=== PATIENT | female | born 1965 | race Caucasian/White ===

== ENCOUNTER 2018-04-05 14:00 | Outpatient (CLI) | payer BC | END 2018-04-05 14:01 | disposition home or self-care (01) | LOC: BICMAMMO 14:00 | PROVIDERS: ATTEND Nurse Practitioner Family | DX: Z12.31 Encounter for screening mammogram for malignant neoplasm of breast (principal); N63.10 Unspecified lump in the right breast, unspecified quadrant; N63.20 Unspecified lump in the left breast, unspecified quadrant | CPT/HCPCS: 77063; 77067 ==

== ENCOUNTER 2019-02-05 08:49 | Day surgery (SDC) | payer OTHER ==
[2019-02-02 14:37] VITALS: BMI 48.6
--- NOTE | 2019-02-04 15:31 | HP ---
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 She has an MRI from [facility] that reveals a lateral disk herniation with inferior migration to the left at L4 that would match the symptoms well. She has already attempted chiropractics as well as PT, but both of these seem to have made her pain significantly worse. She takes [place] and muscle relaxers around the clock and is still content with significant pain. PAST MEDICAL HISTORY: Significant for diabetes, hypertension, arthritis. PAST SURGICAL HISTORY: Hysterectomy, left total knee replacement, right total knee replacement, and tonsillectomy. CURRENT MEDICATIONS: 1. Metformin. 2. Lisinopril/hydrochlorothiazide. 3. Glyburide. 4. Etodolac. 5. Victoza. 6. Tramadol. 7. Tizanidine. 8. [place]. ALLERGIES: PENICILLIN, BACTRIM. PHYSICAL EXAMINATION: GENERAL: The patient is alert and oriented x3. Her gait is significantly altered secondary to weakness in her foot on the left. She is unable to heel walk on the left side. She can toe walk bilaterally reasonably well. She dorsiflexes with great strength in the right lower extremity but on the left lower extremity, she can only dorsiflex to about neutral position and has give-way weakness from there when resisted. Reflexes are equal and present bilaterally at the patella and Achilles. 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 PLAN: Dr. Merino met with the patient, reviewed imaging, advocated for left L4 diskectomy. He explained to the patient the risks, benefits, and alternatives to the procedure. The patient expressed understanding and elected to move forward with surgery as discussed. I do believe the patient is mentally competent capable of making medical decisions for herself and we will move forward with surgery as planned. Job ID: [id number]
[2019-02-05] MEDS ORDERED: Bupivacaine HCl 0.5%/Epinephrine 1:200,000/PF 30 ml Vial ONE (09:17)
[2019-02-05] MEDS ORDERED: Thrombin 5000 UNITS/5 ML VIAL ONE (09:17)
[2019-02-05] MEDS ORDERED: Fentanyl 100 MCG/2 ML VIAL ONE ×4 (09:36→11:59)
[2019-02-05] MEDS ORDERED: Clindamycin/D5W 900 mg/50 ml Premix Bag ONE (09:37)
[2019-02-05] MEDS ORDERED: Midazolam HCl 2 mg/2 ml Vial ONE (09:37)
[2019-02-05] MEDS ORDERED: Levofloxacin 500 mg/D5W 100 ml Premix Bag ONE (09:37)
[2019-02-05] MEDS ORDERED: Ondansetron PF 4 MG/2 ML Vial ONE (09:54)
[2019-02-05] MEDS ORDERED: Lidocaine 1% PF 5 ML VIAL ONE (09:54)
[2019-02-05] MEDS ORDERED: diphenhydrAMINE 50 MG/ML VIAL ONE (09:54)
[2019-02-05] MEDS ORDERED: PHENYLEPHRINE-NS 100 MCG/ML 10 ML SYRINGE ONE (09:54)
[2019-02-05] MEDS ORDERED: Glycopyrrolate 0.2 MG/ML 5 ML SYRINGE ONE (09:54)
[2019-02-05] MEDS ORDERED: Metoclopramide HCl 10 MG/2 ML VIAL ONE (09:54)
[2019-02-05] MEDS ORDERED: PROPOFOL 200 MG/20 ML VIAL ONE (09:54)
[2019-02-05] MEDS ORDERED: Rocuronium Bromide 10 MG/ML (10ML VIAL) ONE (09:54)
[2019-02-05] MEDS ORDERED: SUGAMMADEX SODIUM 500 MG/5 ML VIAL ONE (11:16)
[2019-02-05] MEDS ORDERED: HYDROcodone/Acetaminophen 5/325 mg Tablet ONE (13:17)
--- NOTE | 2019-02-06 09:33 | EKG ---
Test Reason : PREOP Blood Pressure : / mmHG Vent. Rate : 085 BPM Atrial Rate : 085 BPM P-R Int : 160 ms QRS Dur : 078 ms QT Int : 360 ms P-R-T Axes : 067 032 066 degrees QTc Int : 428 ms Normal sinus rhythm Nonspecific T wave abnormality Abnormal ECG When compared with ECG of 19-JAN-2011 12:59, Nonspecific T wave abnormality now evident in Lateral leads Confirmed by DR. Shelly MORLEY ([id number]) on 02/06/2019 9:33:07 AM Referred By: DIANE Confirmed By:DR. Shelly MORLEY
--- NOTE | 2019-02-06 11:38 | OP ---
DATE OF PROCEDURE: 02/05/2019 ADAPTIVE PHYSICAL EDUCATION SPECIALIST: Shankar Sheikh PA-C INDICATION: Pain. DIAGNOSIS: L5 radiculopathy with L4 disk herniation. PROCEDURE: Left L4 diskectomy. ANESTHESIA: General. DESCRIPTION OF PROCEDURE: The patient was brought into the operating room and placed under general anesthesia. She was flipped from the supine to prone position on the operating room table. A linear incision was planned over L4. After prepping and draping and after an appropriate preoperative pause, the incision was created. The soft tissues were swept left of midline. A self-retaining retractor was placed in the wound for optimal exposure. After confirming the appropriate level with C-arm fluoroscopy, high-speed cutting drill bit as well as 1, 2, and 3 mm Kerrisons were used to perform a laminectomy along the inferior aspect of L4 and the superior aspect of L5. The protuberant disk mass was identified at L4 and carefully removed until the descending L5 nerve root was decompressed. The wound was then irrigated. Hemostasis was maintained throughout. The wound was then closed in anatomic layers and a pressure dressing was applied. There were no known procedural complications. Job ID: [id number]
== END 2019-02-05 14:20 | disposition home or self-care (01) ==
LOC: SDC 08:49
PROVIDERS: ATTEND Neurological Surgery
PROC: 0SB20ZZ Excision of Lumbar Vertebral Disc, Open Approach (ICD-10-PCS; principal; 2019-02-05)
DX: M51.16 Intervertebral disc disorders with radiculopathy, lumbar region (principal); M21.372 Foot drop, left foot; I10 Essential (primary) hypertension; E11.9 Type 2 diabetes mellitus without complications; M19.90 Unspecified osteoarthritis, unspecified site; Z79.52 Long term (current) use of systemic steroids; Z79.84 Long term (current) use of oral hypoglycemic drugs; Z79.899 Other long term (current) drug therapy; Z88.0 Allergy status to penicillin; Z88.2 Allergy status to sulfonamides; Z96.653 Presence of artificial knee joint, bilateral
CPT/HCPCS: 76000; 93005; 93010; J0670; J1200; J1956; J2001; J2250; J2405; J2704; J2765; J3010; J3490

== ENCOUNTER 2024-08-24 11:31 | Emergency (ER) | payer BC, OTHER ==
[2024-08-24 12:37] LABS: #Basophils 0.08 10x3/uL (0.0-0.2); %Basophils 0.5 % (0.0-1.0); %Eosinophils 2.9 % (0.0-10.0); %Lymphocytes 23.5 % (21.0-51.0); %Monocytes 5.5 % (0.0-10.0); %Neutrophils 67.2 % (42.0-75.0); Hematocrit 43.2 % (36.0-47.0); Hemoglobin 14.7 g/dL (12.0-16.0); Mean Corpuscular Hemoglobin 29.8 pg (27.0-31.0); Mean Corpuscular Volume 87.4 fL (78.0-98.0); Mean Platelet Volume 9.7 fL (7.4-10.4); Platelet Count 375 10x3/uL (130-400); RBC Distribution Width 13.9 % (11.5-14.5); Red Blood Cell (RBC) Count 4.94 mill/uL (4.20-5.40)
[2024-08-24 13:00] LABS: ALT (SGPT) 28 U/L (8-55); AST (SGOT) 18 U/L (5-34); Albumin 3.5 g/dL (3.5-5.0); Alkaline Phosphatase 47 U/L (40-110); Anion Gap 14 mmol/L (10-20); BUN (Urea Nitrogen) 14 mg/dL (9.8-20.1); Bilirubin, Total 0.3 mg/dL (0.2-1.2); Calc. Creatinine Clearance 0 mL/min (70-130); Calcium 9.5 mg/dL (7.8-10.44); Carbon Dioxide 24 mmol/L (22-29); Chloride 99 mmol/L (98-107); Estimated GFR 96; Globulin 3.3 g/dL (2.4-3.5); Glucose 308 mg/dL (70-105); Magnesium 1.6 mg/dL (1.6-2.6); Potassium 3.5 mmol/L (3.5-5.1); Protein, Total 6.8 g/dL (6.0-8.3); Sodium 133 mmol/L (136-145)
[2024-08-24 13:08] LABS: Troponin I 0.029 ng/mL (< 0.028)
[2024-08-24] MEDS ORDERED: Amiodarone 150 MG/3 ML VIAL ONE (14:03)
[2024-08-24] MEDS ORDERED: Amiodarone 450 MG, Admixture Fee 1 EACH in Dextrose 5% in Water 250 ML IVPB SCH (14:30)
[2024-08-24] MEDS ORDERED: metFORMIN 500 MG TAB PO SCH (21:15)
[2024-08-24] MEDS ORDERED: glyBURIDE 5 MG TAB PO SCH (21:15)
[2024-08-24 21:21] LABS: Troponin I 0.023 ng/mL (< 0.028)
[2024-08-24] MEDS ORDERED: Atorvastatin Calcium 20 MG TAB ONE (21:30)
[2024-08-24] MEDS ORDERED: traMADol HCl 50 MG TAB ONE (21:31)
[2024-08-25 01:02] LABS: Troponin I 0.026 ng/mL (< 0.028)
== END 2024-08-25 02:50 | disposition short-term general hospital (02) ==
LOC: ERS 11:31
DX: I49.3 Ventricular premature depolarization (principal); R53.1 Weakness; R07.9 Chest pain, unspecified; Z87.891 Personal history of nicotine dependence; E11.9 Type 2 diabetes mellitus without complications; I10 Essential (primary) hypertension; Z96.653 Presence of artificial knee joint, bilateral
CPT/HCPCS: 36415; 71045; 80053; 83735; 83880; 84484; 85025; 93005; 96374; J0282; J7070